=== PATIENT | male | born 1990 | race Caucasian/White ===

== ENCOUNTER 2019-10-14 03:46 | Emergency (ER) | payer OTHER ==
[~2019-10-14] VITALS: Ht 168 cm; Wt 80.7 kg
[2019-10-14] MEDS ORDERED: FAMOTIDINE 20 MG (PEPCID) TABLET PO STA (03:58)
[2019-10-14] MEDS ORDERED: LACTATED RINGERS 1,000 ML IV ONE (03:58)
[2019-10-14] MEDS ORDERED: ANTACID SUSP 30 ML UDC (MYLANTA) PO ONE (04:00)
[2019-10-14] MEDS ORDERED: LIDOCAINE 2% VISCOUS 15 ML UDC PO ONE (04:00)
--- NOTE | 2019-10-14 04:03 | ED Abdominal Pain ---
General Chief Complaint: Abdominal/GI Problems Stated Complaint: UPPER LEFT & LOWER ABD PAIN ALL WAY AROUND TO BACK Source of Information: Patient, Other (fiance) Exam Limitations: No Limitations History of Present Illness Date Seen by Provider: Oct 14, 2019 Time Seen by Provider: 03:48 Initial Comments Patient presents to ER by private conveyance from home with chief complaint the past week she's had some progressively worsening pain in his lower abdomen. The past couple days however its radiated up his left flank and into his left upper quadrant abdomen. He has never had a kidney stone it has no dysuria or hematuria. The head is appendix out when he was a child. Ever since then his had problems with loose stools and hard stools. His last bowel movement was today. He's never been told he has irritable bowel or inflammatory bowel. No co lonoscopies or EGDs in the past. He says he feels like when he leans forward he gets some reflux in the back of his throat. He has not tried taking anything for the pain, and antacids or acid reducers. He has not seen anybody for workup yet. No fevers chills cough. He says the pain is worse when he takes deep breath. No fever or sore throat. Typically controls his bowel movements using fiber. Allergies and Home Medications Allergies Coded Allergies: No Known Drug Allergies (Unverified , 04/08/13) Home Medications Omeprazole 20 Mg Capsule.dr, 20 MG PO BID Prescribed by: ELIGIO ASTUDILLO on 10/14/19530 Sucralfate 1 Gm Tablet, 1 GM PO QIDACHS Prescribed by: ELIGIO ASTUDILLO on 10/14/19530 Patient Home Medication List Home Medication List Reviewed: Yes Review of Systems Review of Systems Constitutional: No chills, No fever, No malaise EENTM: No Blurred Vision, No Double Vision, No Eye Tearing Respiratory: Denies Cough, Denies Shortness of Air Cardiovascular: Denies Chest Pain, Denies Edema Gastrointestinal: See HPI; Denies Abdomen Distended; Abdominal Pain, Constipated, Diarrhea Genitourinary: Denies Burning, Denies Discharge; Flank Pain; Denies Hematuria Musculoskeletal: No back pain, No joint pain Skin: No change in color, No lesions Psychiatric/Neurological: Denies Anxiety, Denies Depressed All Other Systems Reviewed Negative Unless Noted: Yes Past Pkvecvr-Vjyyho-Voebcn Hx Patient Social History Alcohol Use: Denies Use Recreational Drug Use: No Smoking Status: Former Smoker Type Used: Cigarettes Former Smoker, Quit: Oct 09, 2016 Recent Foreign Travel: No Contact w/Someone Who Travel: No Physical Exam Vital Signs Vital Signs - First Documented 10/14/19 03:52 Temp 36.3 Pulse 80 Resp 18 B/P (MAP) 130/99 (109) Pulse Ox 98 O2 Delivery Room Air Capillary Refill : Height/Weight/BMI Height: '" Weight: 156lbs. oz. 70.853105ua; BMI Method: General Appearance: WD/WN, mild distress HEENT: PERRL/EOMI, pharyngeal erythema; No tonsillar exudate Neck: full range of motion, normal inspection Respiratory: lungs clear, normal breath sounds, no respiratory distress, no accessory muscle use Cardiovascular: normal peripheral pulses, regular rate, rhythm Peripheral Pulses: 2+ Radial Pulses (R), 2+ Radial Pulses (L) Gastrointestinal: normal bowel sounds, soft, no organomegaly, tenderness (epigastric and left upper quadrant abdomen tenderness to palpate a) Extremities: normal range of motion, non-tender, normal inspection, normal c apillary refill Back: normal inspection, no CVA tenderness Neurologic/Psychiatric: alert, normal mood/affect, oriented x 3 Skin: normal color, warm/dry Progress/Results/Core Measures Results/Orders Lab Results Laboratory Tests Test 10/14/19 04:07 10/14/19 04:56 Range/Units White Blood Count 12.1 H 4.3-11.0 10^3/uL Red Blood Count 5.19 4.35-5.85 10^6/uL Hemoglobin 15.5 13.3-17.7 G/DL Hematocrit 44 40-54 % Mean Corpuscular Volume 86 80-99 FL Mean Corpuscular Hemoglobin 30 25-34 PG Mean Corpuscular Hemoglobin Concent 35 32-36 G/DL Red Cell Distribution Width 12.8 10.0-14.5 % Platelet Count 194 130-400 10^3/uL Mean Platelet Volume 10.3 7.4-10.4 FL Neutrophils (%) (Auto) 57 42-75 % Lymphocytes (%) (Auto) 31 12-44 % Monocytes (%) (Auto) 8 0-12 % Eosinophils (%) (Auto) 4 0-10 % Basophils (%) (Auto) 0 0-10 % Neutrophils # (Auto) 6.9 1.8-7.8 X 10^3 Lymphocytes # (Auto) 3.7 1.0-4.0 X 10^3 Monocytes # (Auto) 1.0 0.0-1.0 X 10^3 Eosinophils # (Auto) 0.4 H 0.0-0.3 10^3/uL Basophils # (Auto) 0.0 0.0-0.1 10^3/uL Sodium Level 141 135-145 MMOL/L Potassium Level 3.8 3.6-5.0 MMOL/L Chloride Level 106 98-107 MMOL/L Carbon Dioxide Level 24 21-32 MMOL/L Anion Gap 11 5-14 MMOL/L Blood Urea Nitrogen 18 7-18 MG/DL Creatinine 0.97 0.60-1.30 MG/DL Estimat Glomerular Filtration Rate > 60 BUN/Creatinine Ratio 19 Glucose Level 95 70-105 MG/DL Calcium Level 9.6 8.5-10.1 MG/DL Corrected Calcium 8.5-10.1 MG/DL Total Bilirubin 0.4 0.1-1.0 MG/DL Aspartate Amino Transf (AST/SGOT) 18 5-34 U/L Alanine Aminotransferase (ALT/SGPT) 23 0-55 U/L Alkaline Phosphatase 79 40-136 U/L C-Reactive Protein High Sensitivity 0.09 0.00-0.50 MG/DL Total Protein 7.4 6.4-8.2 GM/DL Albumin 4.6 H 3.2-4.5 GM/DL Lipase 36 8-78 U/L Monoscreen NEGATIVE NEGATIVE Urine Color YELLOW Urine Clarity CLEAR Urine pH 6.0 5-9 Urine Specific [place] 1.025 H 1.016-1.022 Urine Protein NEGATIVE NEGATIVE Urine Glucose (UA) NEGATIVE NEGATIVE Urine Ketones NEGATIVE NEGATIVE Urine Nitrite NEGATIVE NEGATIVE Urine Bilirubin NEGATIVE NEGATIVE Urine Urobilinogen 1.0 < = 1.0 MG/DL Urine Leukocyte Esterase NEGATIVE NEGATIVE Urine RBC (Auto) NEGATIVE NEGATIVE Urine RBC NONE /HPF Urine WBC NONE /HPF Urine Squamous Epithelial Cells RARE /HPF Urine Crystals NONE /LPF Urine Bacteria NEGATIVE /HPF Urine Casts NONE /LPF Urine Mucus NEGATIVE /LPF Urine Other FEW SPERM H /HPF Urine Trichomonas FEW H /HPF Urine Culture Indicated NO My Orders Orders - ELIGIO ASTUDILLO Chest 1 View, Ap/Pa Only (10/14/19 03:58) Ed Iv/Invasive Line Start (10/14/19 03:58) Lactated Ringers (Lr 1000 Ml Iv Solution (10/14/19 03:58) Lidocaine 2% Viscous 15 Ml (Xylocaine Vi (10/14/19 04:00) Famotidine Tablet (Pepcid Tablet) (10/14/19 03:58) Antacid Suspension (Mylanta Suspension (10/14/19 04:00) Cbc With Automated Diff (10/14/19 03:58) Comprehensive Metabolic Panel (10/14/19 03:58) Lipase (10/14/19 03:58) Hs C Reactive Protein (10/14/19 03:58) Monotest (10/14/19 03:58) Ua Culture If Indicated (10/14/19 04:03) Medications Given in ED Current Medications Medications Dose Ordered Sig/Jessica Route Start Time Stop Time Status Last Admin Dose Admin Al Hydrox/Mg Hydrox/Simethicone 30 ml ONCE ONCE PO 10/14/19 04:00 10/14/19 04:02 DC 10/14/19 04:08 30 ML Lactated Ringer's 1,000 ml @ 0 mls/hr Q0M ONCE IV 10/14/19 03:58 10/14/19 04:02 DC 10/14/19 04:08 0 MLS/HR Lidocaine HCl 15 ml ONCE ONCE PO 10/14/19 04:00 10/14/19 04:02 DC 10/14/19 04:08 15 ML Vital Signs/I&O 10/14/19 03:52 Temp 36.3 Pulse 80 Resp 18 B/P (MAP) 130/99 (109) Pulse Ox 98 O2 Delivery Room Air Progress Progress Note #1: Time: 04:12 Progress Note Gastritis/GERD? Less likely pancreatitis, mono. He does not a sore throat fever but he does have erythematous retropharynx. We'll get some basic labs and urinalysis looking for blood and urine might indicate a kidney stone. GI cocktail. Liter of lactated Ringer's to help induce a urinalysis as well as case we need to do CT imaging. Chest x-ray since he's claiming that hurts when he takes a deep breath and to rule out a pneumonitis/infiltrate. Progress Note #2: Time: 05:26 Progress Note On repeat examination the patient was asleep and said his pain was significantly improved after the GI cocktail. Urinalysis is pending looking for blood that might indicate a kidney stone however at this point seems to be more related to gastritis/GERD. We'll put him out on an acid ward maid and Carafate with follow-up instructions. Progress Note #3: Time: 05:45 Progress Note Plan to give 2 g of metronidazole for Trichomonas. Diagnostic Imaging Diagonstic Imaging: Xray Plain Films/CT/US/NM/MRI: chest (1v) Comments Unremarkable one view chest x-ray Reviewed: Reviewed by Me Departure Impression Primary Impression: Gastritis Qualified Codes: K29.00 - Acute gastritis without bleeding Additional Impressions: GERD with esophagitis Trichomonal urethritis in male Disposition: 01 HOME, SELF-CARE Condition: Improved Departure-Patient Inst. Decision time for Depature: 05:45 Referrals: [facility] (PCP/Family) Primary Care Physician Patient Instructions: Gastritis (DC), Trichomoniasis (DC) Add. Discharge Instructions: For the next month I would like to use omeprazole 20 mg twice a day. For the next 2 weeks I would like you to use Carafate. One tablet a Carafate 30 minutes before meals and at bedtime. If your symptoms persist after 2 weeks then you should follow-up with the general surgeon, Dr. Vargas by calling his office for an appointment. If you're pain becomes worse then you should try Tums, Rolaids, Maalox etc. Tylenol 1000 mg every 8 hours as needed for pain. Ibuprofen 600 mg every 8 hours as needed for pain. If you're pain becomes intractable despite this or you to start to have fever then you should return to the nearest ER. All discharge instructions reviewed with patient and/or family. Voiced understanding. Scripts Sucralfate (Carafate) 1 Gm Tablet 1 GM PO QIDACHS for 14 Days, #56 TAB 0 Refills Prov: ELIGIO ASTUDILLO 10/14/19 Omeprazole (Omeprazole) 20 Mg Capsule. 20 MG PO BID for 30 Days, #60 CAP 0 Refills Prov: ELIGIO ASTUDILLO 10/14/19 Work/School Note: Work Release Form Date Seen in the Emergency Department: Oct 14, 2019 Return to Work: Oct 15, 2019 Restrictions: No Restrictions ELIGIO ASTUDILLO Oct 14, 2019 04:03
--- NOTE | 2019-10-14 04:10 | NUR ---
pt given urinal specimen requested.
[2019-10-14 04:21] LABS: BASOPHILS % (AUTO) 0 % (0-10); EOSINOPHILS # (AUTO) 0.4 10^3/uL (0.0-0.3); EOSINOPHILS % (AUTO) 4 % (0-10); HEMATOCRIT 44 % (40-54); HEMOGLOBIN 15.5 G/DL (13.3-17.7); LYMPHOCYTES # (AUTO) 3.7 X 10^3 (1.0-4.0); LYMPHOCYTES % (AUTO) 31 % (12-44); MEAN CORPUSCULAR HEMOGLOBIN 30 PG (25-34); MEAN CORPUSCULAR HGB CONC 35 G/DL (32-36); MEAN CORPUSCULAR VOLUME 86 FL (80-99); MEAN PLATELET VOLUME 10.3 FL (7.4-10.4); MONOCYTES % (AUTO) 8 % (0-12); NEUTROPHILS # (AUTO) 6.9 X 10^3 (1.8-7.8); NEUTROPHILS % (AUTO) 57 % (42-75); PLATELET COUNT 194 10^3/uL (130-400); RED CELL DISTRIBUTION WIDTH 12.8 % (10.0-14.5); WHITE BLOOD COUNT 12.1 10^3/uL (4.3-11.0)
[2019-10-14 04:42] LABS: ALANINE AMINOTRANSFERASE 23 U/L (0-55); ALBUMIN 4.6 GM/DL (3.2-4.5); ALKALINE PHOSPHATASE 79 U/L (40-136); BILIRUBIN,TOTAL 0.4 MG/DL (0.1-1.0); BUN/CREATININE RATIO 19; CALCIUM 9.6 MG/DL (8.5-10.1); CARBON DIOXIDE 24 MMOL/L (21-32); CHLORIDE 106 MMOL/L (98-107); CREATININE SERUM 0.97 MG/DL (0.60-1.30); GFR ESTIMATED > 60; GLUCOSE 95 MG/DL (70-105); LIPASE 36 U/L (8-78); POTASSIUM 3.8 MMOL/L (3.6-5.0); SODIUM 141 MMOL/L (135-145); TOTAL PROTEIN 7.4 GM/DL (6.4-8.2)
[2019-10-14 05:17] LABS: BILIRUBIN,URINE NEGATIVE (NEGATIVE); CLARITY,URINE CLEAR; COLOR,URINE YELLOW; GLUCOSE, URINE (UA) NEGATIVE (NEGATIVE); KETONES,URINE NEGATIVE (NEGATIVE); LEUKOCYTE ESTERASE ,URINE NEGATIVE (NEGATIVE); NITRITE,URINE NEGATIVE (NEGATIVE); PROTEIN,URINE NEGATIVE (NEGATIVE)
[2019-10-14] MEDS ORDERED: SUCR1TAB36 PO (05:31)
[2019-10-14] MEDS ORDERED: OMEP20CA18 PO (05:31)
[2019-10-14 05:41] LABS: BACTERIA,URINE NEGATIVE /HPF; SQUAMOUS EPITHELIAL CELL,UR RARE /HPF; TRICHOMONAS,URINE FEW /HPF; URINE OTHER FEW SPERM /HPF
[2019-10-14 05:50] VITALS: BP 105/68
[2019-10-14] MEDS ORDERED: metroNIDAZOLE 500 MG (FLAGYL) TAB PO ONE (06:00)
--- NOTE | 2019-10-14 06:03 | Diagnostic Imaging Report ---
INDICATION: Chest pain COMPARISON: None FINDINGS: Single view of the chest demonstrates clear lungs bilaterally. Heart is normal. There is no pneumothorax. The osseous structures are normal. IMPRESSION: Negative chest Dictated by: Dictated on workstation # [id number]
--- OUTSIDE RECORDS SUMMARY | 2019-10-18 12:21 | XMS REPORT ---
Author Author Nelson Olson Doctor Organization [facility] Address Unknown Phone Unavailable Care Team Providers Care Builder'S Labourer Name Role Phone Migration, Doctor Unavailable Unavailable PROBLEMS Type Condition ICD9-CM Code COC47-MH Code Onset Dates Condition S tatus SNOMED Code Problem Costochondritis 733.6 Active 6410 9004 Problem Intestinal infection due to other organism, NEC 008.8 Active 93916281 Problem Screening examination for venereal disease V74.5 Active 114232656 Problem Counseling on other sexually transmitted diseases V65.45 Active 932106073 Problem Cough 786.2 Active [id number] ALLERGIES No Information ENCOUNTERS Encounter Location Date Diagnosis [facility] [address] [id number] [address] [place] [phone] 14 Nov, 2014 [facility] [address] [id number] [address] [place] [phone] Nov, [facility] [address] [id number] [address] [place] [phone] Nov, [facility] [address] [id number] [address] [place] [phone] Oct, [facility] [address] [id number] [address] [place] [phone] Oct, [facility] [address] [id number] [address] [place] [phone] Aug, [facility] [address] [id number] [address] [place] [phone] Jul, [facility] [address] [id number] [address] [place] [phone] Jul, [facility] [address] [id number] [address] [place] [phone] Jul, [facility] [address] [id number] [address] [place] [phone] Jul, [facility] [address] [id number] [address] [place] [phone] Jul, [facility] [address] [id number] [address] [place] [phone] Jul, [facility] [address] [id number] [address] [place] [phone] Jul, [facility] [address] [id number] [address] [place] [phone] Jul, [facility] [address] [id number] [address] [place] [phone] Jun, [facility] [address] [id number] [address] [place] [phone] Jun, [facility] [address] [id number] [address] [place] [phone] Jun, [facility] [address] [id number] [address] [place] [phone] Jun, [facility] [address] [id number] [address] [place] [phone] Jun, [facility] [address] [id number] [address] [place] [phone] Jul, [facility] [address] [id number] [address] [place] [phone] Jun, [facility] [address] [id number] [address] [place] [phone] Jul, [facility] [address] [id number] [address] [place] [phone] Jun, IMMUNIZATIONS No Known Immunizations SOCIAL HISTORY Never Assessed [place]IT [place] [place] VITAL SIGNS MEDICATIONS Unknown Medications RESULTS No Results PROCEDURES No Known procedures INSTRUCTIONS MEDICATIONS ADMINISTERED No Known Medications
--- OUTSIDE RECORDS SUMMARY | 2019-10-18 12:21 | XMS REPORT ---
Author Author Nelson Olson Doctor Organization [facility] Address Unknown Phone Unavailable Care Team Providers Care Data Entry Manager Name Role Phone Migration, Doctor Unavailable Unavailable PROBLEMS Type Condition ICD9-CM Code DMS24-II Code Onset Dates Condition S tatus SNOMED Code Problem Costochondritis 733.6 Active 6410 9004 Problem Intestinal infection due to other organism, NEC 008.8 Active 17628852 Problem Screening examination for venereal disease V74.5 Active 283128166 Problem Counseling on other sexually transmitted diseases V65.45 Active 037617410 Problem Cough 786.2 Active 04348212 ALLERGIES No Information ENCOUNTERS Encounter Location Date Diagnosis [facility] [address] [id number] [address] [place] [phone] 14 Nov, 2014 [facility] [address] [id number] [address] [place] [phone] Nov, [facility] [address] [id number] [address] [place] [phone] Nov, [facility] [address] [id number] [address] [place] [phone] 29 Oct, 2012 [facility] [address] [id number] [address] [place] [phone] Oct, [facility] [address] [id number] [address] [place] [phone] Aug, [facility] [address] [id number] [address] [place] [phone] Jul, [facility] [address] [id number] [address] [place] [phone] Jul, [facility] [address] [id number] [address] [place] [phone] Jul, [facility] [address] [id number] [address] [place] [phone] Jul, [facility] [address] [id number] [address] [place] [phone] Jul, [facility] [address] [id number] [address] [place] [phone] Jul, [facility] [address] [id number] [address] [place] [phone] Jul, [facility] [address] [id number] [address] [place] [phone] Jul, [facility] [address] [id number] [address] [place] [phone] Jun, [facility] [address] [id number] [address] [place] [phone] Jun, [facility] [address] [id number] [address] [place] [phone] Jun, [facility] [address] [id number] [address] [place] [phone] Jun, [facility] [address] [id number] [address] [place] [phone] Jun, [facility] [address] [id number] [address] [place] [phone] Jul, [facility] [address] [id number] [address] [place] [phone] Jun, [facility] [address] [id number] [address] [place] [phone] Jul, [facility] [address] [id number] [address] [place] [phone] Jun, IMMUNIZATIONS No Known Immunizations SOCIAL HISTORY Never Assessed REASON FOR VISIT E[place] [place]AN OF CARE VITAL SIGNS MEDICATIONS Unknown Medications RESULTS No Results PROCEDURES No Known procedures INSTRUCTIONS MEDICATIONS ADMINISTERED No Known Medications
--- OUTSIDE RECORDS SUMMARY | 2019-10-18 12:22 | XMS REPORT ---
Author Author Nelson Olson Doctor Organization [facility] Address Unknown Phone Unavailable Care Team Providers Care Varnish Maker Helper Name Role Phone Migration, Doctor Unavailable Unavailable PROBLEMS Type Condition ICD9-CM Code WGQ62-AG Code Onset Dates Condition S tatus SNOMED Code Problem Costochondritis 733.6 Active 6410 9004 Problem Intestinal infection due to other organism, NEC 008.8 Active 85020725 Problem Screening examination for venereal disease V74.5 Active 257275476 Problem Counseling on other sexually transmitted diseases V65.45 Active 650196758 Problem Cough 786.2 Active 63405190 ALLERGIES No Information ENCOUNTERS Encounter Location Date Diagnosis [facility] [address] [id number] [address] [place] [phone] 14 Nov, 2014 [facility] [address] [id number] [address] [place] [phone] Nov, [facility] [address] [id number] [address] [place] [phone] Nov, [facility] [address] [id number] [address] [place] [phone] 29 Oct, 2012 [facility] [address] [id number] [address] [place] [phone] Oct, [facility] [address] [id number] [address] [place] [phone] Aug, [facility] [address] [id number] [address] [place] [phone] Jul, [facility] [address] [id number] [address] [place] [phone] Jul, [facility] [address] [id number] [address] [place] [phone] Jul, [facility] [address] [id number] [address] [place] [phone] Jul, [facility] [address] [id number] [address] [place] [phone] Jul, [facility] [address] [id number] [address] [place] [phone] Jul, [facility] [address] [id number] [address] [place] [phone] Jul, [facility] [address] [id number] [address] [place] [phone] Jul, [facility] [address] [id number] [address] [place] [phone] Jun, [facility] [address] [id number] [address] [place] [phone] Jun, [facility] [address] [id number] [address] [place] [phone] Jun, [facility] [address] [id number] [address] [place] [phone] Jun, [facility] [address] [id number] [address] [place] [phone] Jun, [facility] [address] [id number] [address] [place] [phone] Jul, [facility] [address] [id number] [address] [place] [phone] Jun, [facility] [address] [id number] [address] [place] [phone] Jul, [facility] [address] [id number] [address] [place] [phone] Jun, IMMUNIZATIONS No Known Immunizations SOCIAL HISTORY Never Assessed REASON FOR VISIT [place] [place] VITAL SIGNS MEDICATIONS Medication Instructions Dosage Frequency Start Date End Date Duration S tatus PredniSONE 20 mg 2 tablet by Oral route 1 time per day for 5 day(s)steroid Aug, Active Zofran ODT 8 mg take 1 tablet by Ora l route every 8 hours PRN nausea or vomiting Oct, Active RESULTS No Results PROCEDURES No Known procedures INSTRUCTIONS MEDICATIONS ADMINISTERED No Known Medications
--- OUTSIDE RECORDS SUMMARY | 2019-10-18 12:22 | XMS REPORT | Continuity of Care Document ---
Author Author [facility] Organization [facility] Address Unknown Phone Unavailable Care Team Providers Care Broaching Machine Repairer Name Role Phone NO, LOCAL PHYSICIAN PP Unavailable Insurance Providers Payer Name Policy Number Subscriber Name Relationship Unknown Jim López Advance Directives Directive Response Recor ded Date Advance Directives N 10:07pm Problems No Known Problems or Medical conditions. Social History History Response Recorde d Date/Time Alcohol Use Rarely Uses 04/08/13 10:07pm Recreational Drug Use N 04/08/13 10:07pm Allergies, Adverse Reactions, Alerts Allergen Type Severity Reaction Last Updated No Known Drug Allergies 04/08/13 Medications No known medications Response Recorded Date/Time Status not known Unknown Results No Known Relevant Diagnostic Tests, Laboratory Data and/or Discharge Summary. Encounters Encounter Location Date/ Time Departed Emergency Room [facility] 04/08/13 10:00pm
--- OUTSIDE RECORDS SUMMARY | 2019-10-18 12:22 | XMS REPORT ---
Author Author Nelson Olson Doctor Organization [facility] Address Unknown Phone Unavailable Care Team Providers Care Table Games Floor Supervisor Name Role Phone Migration, Doctor Unavailable Unavailable PROBLEMS Type Condition ICD9-CM Code ZGW14-FD Code Onset Dates Condition S tatus SNOMED Code Problem Costochondritis 733.6 Active 6410 9004 Problem Intestinal infection due to other organism, NEC 008.8 Active 72681808 Problem Screening examination for venereal disease V74.5 Active 567796666 Problem Counseling on other sexually transmitted diseases V65.45 Active 198401248 Problem Cough 786.2 Active [id number] ALLERGIES No Information ENCOUNTERS Encounter Location Date Diagnosis [facility] [address] [id number] [address] [place] [phone] 14 Nov, 2014 [facility] [address] [id number] [address] [place] [phone] Nov, [facility] [address] [id number] [address] [place] [phone] Nov, [facility] [address] [id number] [address] [place] [phone] 29 Oct, 2012 [facility] [address] [id number] [address] [place] [phone] Oct, [facility] [address] [id number] [address] [place] [phone] Aug, [facility] [address] [id number] [address] [place] [phone] Jul, [facility] [address] [id number] [address] [place] [phone] Jul, [facility] [address] [id number] [address] [place] [phone] Jul, [facility] [address] [id number] [address] [place] [phone] Jul, [facility] [address] [id number] [address] [place] [phone] Jul, [facility] [address] [id number] [address] [place] [phone] Jul, [facility] [address] [id number] [address] [place] [phone] Jul, [facility] [address] [id number] [address] [place] [phone] Jul, [facility] [address] [id number] [address] [place] [phone] Jun, [facility] [address] [id number] [address] [place] [phone] Jun, [facility] [address] [id number] [address] [place] [phone] Jun, [facility] [address] [id number] [address] [place] [phone] Jun, [facility] [address] [id number] [address] [place] [phone] Jun, [facility] [address] [id number] [address] [place] [phone] Jul, [facility] [address] [id number] [address] [place] [phone] Jun, [facility] [address] [id number] [address] [place] [phone] Jul, [facility] [address] [id number] [address] [place] [phone] Jun, IMMUNIZATIONS No Known Immunizations SOCIAL HISTORY Never Assessed REASON FOR VISIT EMR-[facility] PLAN OF CARE VITAL SIGNS MEDICATIONS Unknown Medications RESULTS No Results PROCEDURES No Known procedures INSTRUCTIONS MEDICATIONS ADMINISTERED No Known Medications
== END 2019-10-14 05:53 | disposition home or self-care (01) ==
LOC: EDUNIT# 03:46 → ER 03:50
DX: K29.70 Gastritis, unspecified, without bleeding (principal); K21.0 Gastro-esophageal reflux disease with esophagitis; A59.03 Trichomonal cystitis and urethritis; Z87.891 Personal history of nicotine dependence
CPT/HCPCS: 36415; 71045; 80053; 81000; 83690; 85025; 86141; 86308

== ENCOUNTER 2019-12-16 07:41 | Outpatient (RCR) | payer OTHER ==
[~2019-12-16] VITALS: Ht 170 cm; Wt 77.2 kg
[~2019-12-16 07:41] MED LIST: OMEP20CA18 PO; SUCR1TAB36 PO
== END 2019-12-16 15:31 | disposition home or self-care (01) ==
LOC: PREOP 07:41
PROVIDERS: ATTEND Surgery
DX: Z01.818 Encounter for other preprocedural examination (principal)
CPT/HCPCS: 87635

== ENCOUNTER → 2020-01-06 | Outpatient (CLI) | payer OTHER ==
[~2020-01-06] MED LIST changes: +CATHETER FLUSH 10 ML SYR IV PRN
--- NOTE | 2020-01-06 11:07 | Diagnostic Imaging Report ---
INDICATION: Abdominal pain. Patient was administered 4.9 mCi technetium 99m Choletec intravenously and imaging over the abdomen was performed. After 60 minutes, the patient ingested 1 can of Ensure and a gallbladder ejection fraction was calculated. There is homogeneous uptake of activity by the liver. Prompt excretion of activity into the common duct and gallbladder is noted. There is normal passage of activity into the small bowel. Gallbladder ejection fraction is 95%. IMPRESSION: 1. Patent cystic duct and common bile duct. 2. Gallbladder ejection fraction of 95%. Dictated by: Dictated on workstation # [id number]
== END ==
LOC: CARD 08:32
PROVIDERS: ATTEND Surgery
DX: R11.2 Nausea with vomiting, unspecified (principal); R10.9 Unspecified abdominal pain
CPT/HCPCS: 78227

== ENCOUNTER 2020-01-14 08:08 | Outpatient (RCR) | payer OTHER ==
[~2020-01-14] VITALS: Ht 170 cm; Wt 77.2 kg
[~2020-01-14 08:08] MED LIST changes: -CATHETER FLUSH 10 ML SYR IV PRN
== END 2020-01-14 14:06 | disposition home or self-care (01) ==
LOC: PREOP 08:08
PROVIDERS: ATTEND Surgery
DX: Z01.812 Encounter for preprocedural laboratory examination (principal); Z20.828 Contact with and (suspected) exposure to other viral communicable diseases; K82.8 Other specified diseases of gallbladder
CPT/HCPCS: 87635

== ENCOUNTER 2020-01-19 06:43 | Day surgery (SDC) | payer OTHER ==
[2020-01-19] VITALS (10 sets, daily range): BP systolic 104–128; BP diastolic 58–82
[~2020-01-19] VITALS: Ht 170 cm; Wt 77.2 kg
--- OUTSIDE RECORDS SUMMARY | 2020-01-19 06:50 | XMS REPORT | Continuity of Care Document ---
Author Organization Unknown Address Unknown Phone Unavailable Allergies Active Description Code Type Severity Reaction Onset Reported/Identified Relationship to Patient Clinical Status Yes No Known Drug Allergies [id number] Drug Allergy Unknown N/A 12/15/2019 Medications There is no data. Problems Date Dx Coded Attending Type Code Diagnosis Diagnosed By 07/10/1405 KADI KELLER DO Ot K82.8 OTHER SPECIFIED DISEASES OF GALLBLADDER 07/10/1405 KADI KELLER DO Ot Z01.8 12 ENCOUNTER FOR PREPROCEDURAL LABORATORY E 07/10/1405 [place] KADI COLEY Ot Z20.8 28 CONTACT W AND EXPOSURE TO OTH VIRAL COMM 07/10/1530 KADI KELLER DO Ot Z01.8 18 ENCOUNTER FOR OTHER PREPROCEDURAL EXAMIN 04/10/2009 PATTI IKNG DO V70.4 EXAMINATION FOR MEDICOLEGAL REASONS 04/10/2009 V70.4 EXAM INATION FOR MEDICOLEGAL REASONS 04/10/2009 V70.4 EXAM INATION FOR MEDICOLEGAL REASONS 04/10/2009 V70.4 EXAM INATION FOR MEDICOLEGAL REASONS 04/10/2009 FAIZA WILCOX APRN V70.4 EXAMINATION FOR MEDICOLEGAL REASONS 06/28/2010 PATTI KING DO V01.6 CONTACT WITH OR EXPOSURE TO VENEREAL DISEASES 06/28/2010 V01.6 CONT ACT WITH OR EXPOSURE TO VENEREAL DISEASES 06/28/2010 V01.6 CONT ACT WITH OR EXPOSURE TO VENEREAL DISEASES 06/28/2010 V01.6 CONT ACT WITH OR EXPOSURE TO VENEREAL DISEASES 06/28/2010 FAIZA WILCOX APRN V01.6 CONTACT WITH OR EXPOSURE TO VENEREAL DISEASES 07/10/2011 PATTI KING DO 465.9 UPPER RESPIRATORY INFECTION 07/10/2011 PATTI KING DO 789.01 ABDOMINAL PAIN RIGHT UPPER QUADRANT 07/10/2011 465.9 UPPE R RESPIRATORY INFECTION 07/10/2011 789.01 ABD OMINAL PAIN RIGHT UPPER QUADRANT 07/10/2011 465.9 UPPE R RESPIRATORY INFECTION 07/10/2011 789.01 ABD OMINAL PAIN RIGHT UPPER QUADRANT 07/10/2011 465.9 UPPE R RESPIRATORY INFECTION 07/10/2011 789.01 ABD OMINAL PAIN RIGHT UPPER QUADRANT 07/10/2011 FAIZA WILCOX APRN 465.9 UPPER RESPIRATORY INFECTION 07/10/2011 FAIZA WILCOX APRN 789.01 ABDOMINAL PAIN RIGHT UPPER QUADRANT 07/09/2012 KING DO, PATTI K 786.2 COUGH 07/09/2012 KING DO, PATTI K V65.45 STD COUNSELING 07/09/2012 KING DO, PATTI K V74.5 STD SCREEN 07/09/2012 786.2 COUGH 07/09/2012 V65.45 STD COUNSELING 07/09/2012 V74.5 STD SCREEN 07/09/2012 786.2 COUGH 07/09/2012 V65.45 STD COUNSELING 07/09/2012 V74.5 STD SCREEN 07/09/2012 786.2 cough 07/09/2012 V65.45 STD COUNSELING 07/09/2012 V74.5 STD SCREEN 07/09/2012 FAIZA WILCOX APRN 786.2 cough 07/09/2012 FAIZA WILCOX APRN V65.45 STD COUNSELING 07/09/2012 FAIZA WILCOX APRN V74.5 STD SCREEN 07/23/2012 733.6 TIET ZE'S DISEASE 07/23/2012 733.6 TIET ZE'S DISEASE 07/23/2012 FAIZA WILCOX APRN 733.6 TIETZE'S DISEASE 11/04/2012 FAIZA WILCOX APRN 008.8 GASTROENTERITIS, VIRAL 10/14/2019 BAUDILIO MONTANEZ, ELIGIO J Ot 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 0 GASTRO-ESOPHAGEAL REFLUX DISEASE WITH ES 10/14/2019 ELIGIO ASTUDILLO MD Ot K29. 70 GASTRITIS, UNSPECIFIED, WITHOUT BLEEDING 10/14/2019 ELIGIO ASTUDILLO MD Ot R10. 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 0 GASTRO-ESOPHAGEAL REFLUX DISEASE WITH ES 10/18/2019 BAUDILIO MONTANEZ, ELIGIO Solomon Ot K29. 70 GASTRITIS, UNSPECIFIED, WITHOUT BLEEDING 10/18/2019 BAUDILIO MONTANEZ, ELIGIO Solomon Ot R10. 30 LOWER ABDOMINAL PAIN, UNSPECIFIED 10/18/2019 BAUDILIO MONTANEZ, ELIGIO Solomon Ot Z87.891 PERSONAL HISTORY OF NICOTINE DEPENDENCE 12/16/2019 DELMAN DO, KADI B Ot Z01.8 18 ENCOUNTER FOR OTHER PREPROCEDURAL EXAMIN 12/20/2019 DELMAN DO, KADI B Ot F17.2 10 NICOTINE DEPENDENCE, CIGARETTES, UNCOMPL 12/20/2019 DELMAN DO, KADI B Ot K20.9 ESOPHAGITIS, UNSPECIFIED 12/20/2019 DELMAN DO, KADI B Ot K29.5 0 UNSPECIFIED CHRONIC GASTRITIS WITHOUT BL 12/20/2019 DELMAN DO, KADI B Ot K59.0 0 CONSTIPATION, UNSPECIFIED 12/20/2019 DELMAN DO, KADI B Ot K64.8 OTHER HEMORRHOIDS 12/20/2019 DELMAN DO, KADI B Ot R19.4 CHANGE IN BOWEL HABIT 12/20/2019 DELMAN DO, KADI B Ot R19.7 DIARRHEA, UNSPECIFIED 12/20/2019 DELMAN DO, KADI B Ot Z80.0 FAMILY HISTORY OF MALIGNANT NEOPLASM OF 12/20/2019 DELELVIRA DO, KADI B Ot Z90.8 9 ACQUIRED ABSENCE OF OTHER ORGANS 12/23/2019 DELELVIRA DO, KADI B Ot F17.2 10 NICOTINE DEPENDENCE, CIGARETTES, UNCOMPL 12/23/2019 DELMAN DO, KADI B Ot K20.9 ESOPHAGITIS, UNSPECIFIED 12/23/2019 DELMAN DO, KADI B Ot K29.5 0 UNSPECIFIED CHRONIC GASTRITIS WITHOUT BL 12/23/2019 DELMAN DO, KADI B Ot K59.0 0 CONSTIPATION, UNSPECIFIED 12/23/2019 DELMAN DO, KADI B Ot K64.8 OTHER HEMORRHOIDS 12/23/2019 DELMAN DO, KADI B Ot Z80.0 FAMILY HISTORY OF MALIGNANT NEOPLASM OF 12/23/2019 DELMAN DO, KADI B Ot Z90.8 9 ACQUIRED ABSENCE OF OTHER ORGANS 12/26/2019 DELMAN DO, KADI B Ot F17.2 10 NICOTINE DEPENDENCE, CIGARETTES, UNCOMPL 12/26/2019 JOVANNY KELLER DOIC B Ot K20.9 ESOPHAGITIS, UNSPECIFIED 12/26/2019 JOVANNY KELLER DOIC B Ot K29.5 0 UNSPECIFIED CHRONIC GASTRITIS WITHOUT BL 12/26/2019 JOVANNY KELLER DOIC B Ot K59.0 0 CONSTIPATION, UNSPECIFIED 12/26/2019 JOVANNY KELLER DOIC B Ot K64.8 OTHER HEMORRHOIDS 12/26/2019 JOVANNY KELLER DOIC B Ot Z80.0 FAMILY HISTORY OF MALIGNANT NEOPLASM OF 12/26/2019 JOVANNY KELLER DOIC B Ot Z90.8 9 ACQUIRED ABSENCE OF OTHER ORGANS 01/07/2020 JOVANNY KELLER DOIC B Ot R10.9 UNSPECIFIED ABDOMINAL PAIN 01/07/2020 JOVANNY KELLER DOIC B Ot R11.2 NAUSEA WITH VOMITING, UNSPECIFIED Procedures Code [place] [address] GC/C [facility]INE ([facility]) 07/09/2012 85189 ROUT INE VENIPUNCTURE 11/04/2012 53406 [facility] 11/04/2012 29552 GC/C [facility] URINE (STATE) 11/04/2012 60204 HIV ANTIBODIES (RML) 11/04/2012 Results Test Result Range Complete blood count (CBC) with automate d white blood cell (WBC) differential - 10/14/19 04:07 Blood leukocytes automated count (number/volume) 12.1 10*3/uL 4.3-11.0 Blood erythrocytes automated count (number/volume) 5.19 10*6/uL 4.35-5.85 Venous blood hemoglobin measurement (mass/volume) 15.5 g/dL 13.3-17.7 Blood hematocrit (volume fraction) 44 % 40-54 Automated erythrocyte mean corpuscular volume 86 [ foz_us] 80-99 Automated erythrocyte mean corpuscular h emoglobin (mass per erythrocyte) 30 pg 25-34 Automated erythrocyte mean corpuscular h emoglobin concentration measurement (mass/volume) 35 g/dL 32-36 Automated erythrocyte distribution width ratio 12. 8 % 10.0- 14.5 Automated blood platelet count (count/volume) 194 10*3/uL 130-400 Automated blood platelet mean volume measurement 10.3 [foz_us] 7.4-10.4 Automated blood neutrophils/100 leukocytes 57 % 42-75 Automated blood lymphocytes/100 leukocytes 31 % 12-44 Blood monocytes/100 leukocytes 8 % 0-12 Automated blood eosinophils/100 leukocytes 4 % 0-10 Automated blood basophils/100 leukocytes 0 % 0-10 Blood neutrophils automated count (number/volume) 6.9 10*3 1.8-7.8 Blood lymphocytes automated count (number/volume) 3.7 10*3 1.0-4.0 Blood monocytes automated count (number/volume) 1. 0 10*3 0.0-1.0 Automated eosinophil count 0.4 10*3/uL 0 .0-0.3 Automated blood basophil count (count/volume) 0.0 10*3/uL 0.0-0.1 Serum heterophile antibody titer - 10/13 04:07 Serum heterophile antibody titer NEGATIVE NEGATIVE Comprehensive metabolic panel - 10/14/19 04:07 Serum or plasma sodium measurement (moles/volume) 141 mmol/L 135-145 Serum or plasma potassium measurement (moles/volume) 3.8 mmol/L 3.6-5.0 Serum or plasma chloride measurement (moles/volume) 106 mmol/L 98-107 Carbon dioxide 24 mmol/L 21-32 Serum or plasma anion gap determination (moles/volume) 11 mmol/L 5-14 Serum or plasma urea nitrogen measurement (mass/volume ) 18 mg/dL 7-18 Serum or plasma creatinine measurement (mass/volume) 0.97 mg/dL 0.60-1.30 Serum or plasma urea nitrogen/creatinine mass ratio 19 NRG Serum or plasma creatinine measurement w ith calculation of estimated glomerular filtration rate > NRG Serum or plasma glucose measurement (mass/volume) 95 mg/dL 70-105 Serum or plasma calcium measurement (mass/volume) 9.6 mg/dL 8.5-10.1 Serum or plasma total bilirubin measurement (mass/volu me) 0.4 mg/dL 0.1-1.0 Serum or plasma alkaline phosphatase elizabeth surement (enzymatic activity/volume) 79 U/L 40-136 Serum or plasma aspartate aminotransfera se measurement (enzymatic activity/volume) 18 U/L 5-34 Serum or plasma alanine aminotransferase measurement (enzymatic activity/volume) 23 U/L 0-55 Serum or plasma protein measurement (mass/volume) 7.4 g/dL 6.4-8.2 Serum or plasma albumin measurement (mass/volume) 4.6 g/dL 3.2-4.5 Lipase - 10/14/19 04:07 Lipase 36 U/L 8-78 Serum or plasma C reactive protein measu rement (mass/volume) - 10/14/19 04:07 Serum or plasma C reactive protein measurement (mass/v olume) 0.09 mg/dL 0.00-0.50 Complete urinalysis with reflex to cultu re - 10/14/19 04:56 Urine color determination YELLOW NRG Urine clarity determination CLEAR NR G Urine pH measurement by test strip 6.0 5-9 Specific gravity of urine by test strip 1.025 1.016-1.022 Urine protein assay by test strip, semi-quantitative NEGATIVE NEGATIVE Urine glucose detection by automated test strip NE GATIVE NEGATIVE Erythrocytes detection in urine sediment by light micr oscopy NEGATIVE NEGATIVE Urine ketones detection by automated test strip NE GATIVE NEGATIVE Urine nitrite detection by test strip NEGATIVE NEGATIVE Urine total bilirubin detection by test strip NEGA TIVE NEGATIVE Urine urobilinogen measurement by automated test strip (mass/volume) 1.0 mg/dL < = 1.0 Urine leukocyte esterase detection by dipstick NEG ATIVE NEGATIVE Automated urine sediment erythrocyte cou nt by microscopy (number/high power field) NONE NRG Automated urine sediment leukocyte count by microscopy (number/high power field) NONE NRG Bacteria detection in urine sediment by light microsco py NEGATIVE NRG Squamous epithelial cells detection in u rine sediment by light microscopy RARE NRG Crystals detection in urine sediment by light microsco py NONE NRG Casts detection in urine sediment by light microscopy NONE NRG Mucus detection in urine sediment by light microscopy NEGATIVE NRG Complete urinalysis with reflex to culture NO NRG Urine Trichomonas species detection by light microscop y FEW NRG Other elements identification in urine sediment by lig ht microscopy FEW SPERM NRG Coronavirus SARS-CoV-2 SO 2018 0 13:12 Coronavirus Ab [Units/volume] in Serum Negative Negative Coronavirus SARS-CoV-2 SO 2018 0 13:26 Coronavirus Ab [Units/volume] in Serum Negative Negative Encounters ACCT No. Visit Date/Time Discharge Status Pt. Type Provider Facility Loc./Unit Complaint [id number] 10/27/2019 15:50:00 10/27/2019 23:59:5 9 CLS Outpatient [facility] [id number] 01/14/2020 08:08:00 14:06:00 DIS Outpatient KADI KELLER DO [facility] PREOP BILIARY DYSKINESIA [id number] 01/06/2020 08:32:00 23:59:59 CLS Outpatient KADI KELLER DO B [facility] CARD ABD PAIN [id number] 12/20/2019 10:41:00 13:40:00 DIS Outpatient KADI KELLER DO B [facility] ENDO N V, ABD PAIN [id number] 12/16/2019 07:41:00 15:31:00 DIS Outpatient KADI KELLER DO [facility] PREOP COLONOSCOPY/EGD [id number] 10/14/2019 03:50:00 05:53:00 DIS Emergency ELIGIO ASTUDILLO MD [facility] ER UPPER LEFT LOWER ABD PAIN ALL WAY AROUND TO BACK [id number] 04/08/2013 22:00:00 00:15:00 DIS Emergency [id number] 01/19/2020 08:00:00 P EN Preadmit KADI KELLER DO [facility] SDC BILIARY DYSKINESIA [id number] 11/04/2012 12:59:00 11/04/2012 23:59: 59 CLS Outpatient FAIZA WILCOX APRN [id number] 08/24/2012 11:47:00 08/24/2012 23:59: 59 CLS Outpatient [id number] 07/23/2012 10:01:00 07/23/2012 23:59: 59 CLS Outpatient [id number] 07/09/2012 10:34:00 07/09/2012 23:59: 59 CLS Outpatient [id number] 06/24/2012 12:14:00 06/24/2012 23:59:5 9 CLS Outpatient PATTI KING DO
[2020-01-19] MEDS ORDERED: BUP/EPI 0.5% 1:200,000 (SENSORCAINE) 30 ML VIAL ONE (06:56)
[2020-01-19] MEDS ORDERED: IOPAMIDOL 61% 30 ML (ISOVUE 300) VIAL ONE (06:57)
[2020-01-19] MEDS ORDERED: LACTATED RINGERS 1,000 ML IV PRN (07:31)
[2020-01-19] MEDS ORDERED: ceFAZolin 2 GM IV Premixed 50 ML IV ONE (07:45)
[2020-01-19] MEDS ORDERED: MIDAZOLAM 2 MG/2 ML (VERSED) VIAL ONE (08:07)
[2020-01-19] MEDS ORDERED: SEVOFLURANE (ULTANE) 15 ML INHAL SOLN ONE (08:07)
[2020-01-19] MEDS ORDERED: ROCURONIUM 10 MG/ML 5 ML SYRINGE IV ONE (08:07)
[2020-01-19] MEDS ORDERED: fentaNYL INJECTION 100 MCG/2 ML AMP ONE (08:07)
[2020-01-19] MEDS ORDERED: proPOfol 200 MG/20 ML (DIPRIVAN) VIAL IV ONE ×2 (08:07→08:29)
[2020-01-19] MEDS ORDERED: DEXAMETHASONE 10 MG/ML (DECADRON) 1 ML VIAL ONE (08:07)
[2020-01-19] MEDS ORDERED: ONDANSETRON 4 MG/2 ML (SDV) Z0FRAN ONE (08:07)
--- NOTE | 2020-01-19 08:09 | Progress Note-Pre Operative ---
Pre-Operative Progress Note H&P Reviewed The H&P was reviewed, patient examined and no changes noted. Time Seen by Provider: 08:05 Date H&P Reviewed: Jan 19, 2020 Time H&P Reviewed: 08:06 Pre-Operative Diagnosis: Biliary Dyskinesia KADI KELLER DO Jan 19, 2020 08:09
[2020-01-19] MEDS ORDERED: GLYCOPYRROLATE 0.2 MG/ML (ROBINUL) 2 ML VIAL ONE (08:10)
[2020-01-19] MEDS ORDERED: NEOSTIGMINE 3 MG/3 ML VIAL ONE (08:10)
[2020-01-19] MEDS ORDERED: HYDROmorphone 2 MG/ML VIAL (DILAUDID) ONE (08:37)
--- NOTE | 2020-01-19 09:05 | Progress Note-Post Operative ---
Post-Operative Progess Note Surgeon (s)/Digital Design Engineer (s) Surgeon KADI KELLER DO Digital Design Engineer: Doris Pre-Operative Diagnosis Biliary Dyskinesia Post-Operative Diagnosis Same Procedure & Operative Findings Date of Procedure 01/19/20 Procedure Performed/Findings PROCEDURE: Laparoscopic cholecystectomy with intraoperative cholangiogram. COMPLICATIONS: None. PROCEDURE: The patient was taken to the operating suite and was prepped and draped in sterile fashion. A surgical pause was performed. Just superior to the umbilicus, a 12 mm incision was made. Dissection was taken down to the fascia, which was then scored and grasped with a Mary and the abdomen was then entered. A 0 Vicryl suture was placed in a vfwaos-rp-zohdm fashion and a Alvarenga trocar was placed and secured. Pneumoperitoneum was achieved. A 5mm trochar place in the subxyphoid and 2 in the right upper quadrant. The gallbladder was then grasped and elevated. The cystic duct, and cystic artery were then dissected out. Clip was placed on the distal portion of the cystic duct which was then partially transected. An arrow catheter was inserted into the duct. The cholangiogram was then performed. No filing defects and contrast made its way into the duodenum. Catheter removed. Clips were placed on proximal portion of the cystic duct and then the duct was then transected. Clips were placed along the proximal and distal portion of the cystic artery which was then transected. Hook cautery was used to dissect the gallbladder from the gallbladder fossa achieving hemostasis. The gallbladder was placed in an Endobag and removed through the 12 mm trocar site. The abdomen was then reinspected. Copious amounts of irrigation were used to irrigate the abdomen and there were no signs of active bleeding. Hemostasis had been achieved. The 12 mm fascial defect was then closed with 0 Vicryl suture that had been placed in a bujrjj-xi-bvdbg fashion. The abdomen was then desufflated, the trocars were removed. The abdomen was then washed and dried. The skin was then closed using 4-0 Monocryl in a subcuticular fashion. The abdomen was washed and dried and Skin Affix was place over incisions. Patient tolerated the procedure well without any complications and was taken to the recovery room in stable condition. Dr. George assisted on this case helping to make incisions, close incisions, identify anatomy and hold anatomy out of the way. Anesthesia Type GET Estimated Blood Loss Estimated blood loss (mL): scant Specimens/Packing Specimens Removed GB and contents KADI KELLER DO Jan 19, 2020 09:05
[2020-01-19] MEDS ORDERED: HYDR-4226 PO (09:06)
--- NOTE | 2020-01-19 09:07 | Discharge Inst-Surgical ---
Discharge Inst-Surgical Depart Medication/Instructions New, Converted or Re-Newed RX: RX Given to Pt/Family Patient Instructions Follow up Appt: Make appointment for 1 week. [phone] Instructions: No lifting greater than 20 pounds. No strenuous activity. May shower in 24 hours, no tub bath or soaking. Use incentive spirometer at home as directed. No Smoking Skin/Wound Care: May remove bandages in am. You need to leave the Dermabond on incision it will fall off on it's own. Symptoms to Report: Appetite Changes, Extremity Discoloration, Numbness/Tingling, Swelling Increased, Bleeding Excessive, Eyesight Changes, Pain Increased, Urine Color Change, Constipation(Persistent), Fever over 101 degree F, Pain/Pressure in chest, Urinating Difficulty, Cough Up/Vomit Blood, Heart Beat Irreg/Pounding, Pain/Pressure in jaw, Cramps in feet or legs, Lightheadedness, Pain/Pressure in shoulder, Diarrhea(Persistent), Memory Changes Suddenly, Questions/Concerns, Weight gain consecutive days, Dizziness/Fainting, Nausea/Vomiting, Shortness of Breath, Weight gain over 2 pounds If questions or concerns contact your physician Or seek help at emergency department. Activity Activity as Tolerated: Yes Activity Instructions: Avoid Stress to Incision Driving Instructions: No Driving/Refer to Diet Discharge Diet: Avoid Fatty Foods, Low Fat/Low Cholesterol If Any Problems/Questions/Issu: Contact Your Physician, Go to Emergency Room Skin/Wound Care Infection Signs and Symptoms: Increased Redness, Foul Odor of Wound, Increased Drainage, Skin Itchy or Has a Rash, Increased Swelling, Temperature Above 101 F Wound Care Comment: heating pad to shoulder or neck tonight for pain Bathing Instructions: Shower Stitches/Concha/Dermabond Dis: Dermabond Ice Pack: Ice On and Off Site (at incisions if needed for pain) KADI KELLER DO Jan 19, 2020 09:07
[2020-01-19] MEDS ORDERED: KETOROLAC 30 MG/ML VIAL ONE (09:25)
[2020-01-19] MEDS ORDERED: HYDROmorphone 2 MG/ML VIAL (DILAUDID) IV ONE (09:30)
[2020-01-19] MEDS ORDERED: ONDANSETRON 4 MG/2 ML (SDV) Z0FRAN IVP PRN (09:30)
--- NOTE | 2020-01-19 10:07 | Diagnostic Imaging Report ---
INDICATION: Fluoroscopy for intraoperative cholangiogram. TECHNIQUE/FINDINGS: Fluoroscopy was provided in the OR during intraoperative cholangiogram. 14 seconds of fluoroscopic time was utilized. Images demonstrate contrast being injected via the cystic duct remnant. The visualized intrahepatic and extrahepatic bile ducts are of normal caliber. No filling defects are seen. Contrast flows into the duodenum. IMPRESSION: Fluoroscopy for intraoperative cholangiogram. Dictated by: Dictated on workstation # [id number]
[2020-01-19] MEDS ORDERED: HYDROcodone/APAP 5 MG/325 MG (LORTAB) TAB PO ONE (10:45)
[2020-01-19] MEDS ORDERED: HYDROcodone/APAP 5 MG/325 MG (LORTAB) TAB ONE (10:50)
--- NOTE | 2020-01-19 10:57 | NUR ---
RATES RUQ ABD DISCOMFORT 5. HAS HAD CRACKERS AND TAKING PO FLUIDS WITHOUT PROBLEM. LORTAB 5/325 MG, ONE TAB, GIVEN PO. SKIN AFFIX INTACT TO X4 LAP ABD SURGICAL SITES, ICE PACK ON.
--- NOTE | 2020-01-19 12:00 | NUR ---
HAS BEEN RESTING QUIETLY IN BED WITH EYES CLOSED, RESPIRATIONS EVEN, UNLABORED. AWAKE NOW, PAIN RATED 2.
--- NOTE | 2020-01-19 12:45 | NUR ---
HAS BEEN INSTRUCTED ON INCENTIVE SPIROMETRY AND DEMONSTRATED PROPER USE. REQUESTING DISMISSAL.
--- NOTE | 2020-01-20 07:36 | Anesthesia-General Post-Op ---
General Patient Condition Mental Status/LOC: Same as Preop Cardiovascular: Satisfactory Nausea/Vomiting: Absent Respiratory: Satisfactory Pain: Controlled Complications: Absent Post Op Complications Complications None Follow Up Care/Instructions Patient Instructions None needed. Anesthesia/Patient Condition Patient Condition Patient is doing well, no complaints, stable vital signs, no apparent adverse anesthesia problems. No complications reported per nursing. D/C home per [facility] Criteria: Yes DENISE CANCHOLA CRNA Jan 20, 2020 07:36
== END 2020-01-19 12:45 | disposition home or self-care (01) ==
LOC: SDC 06:43
PROVIDERS: ATTEND Surgery
DX: K81.1 Chronic cholecystitis (principal); K82.8 Other specified diseases of gallbladder; K29.50 Unspecified chronic gastritis without bleeding; K64.0 First degree hemorrhoids; K58.9 Irritable bowel syndrome, unspecified; F17.210 Nicotine dependence, cigarettes, uncomplicated; Z11.2 Encounter for screening for other bacterial diseases
CPT/HCPCS: 76000; 87081